=== PATIENT | male | born 1945 | race Caucasian/White ===

== ENCOUNTER 2017-08-14 05:55 | Inpatient (IN) ==
[2017-08-12 13:49] LABS: Basophils # (Auto) 0 K/mcL (0.0-0.3); Basophils % (Auto) 0.3 % (0.0-2.0); Eosinophils # (Auto) 0 K/mcL (0.0-0.7); Eosinophils % (Auto) 0.6 % (0.0-7.0); Granulocytes % (Auto) 76.7 % (38.0-78.0); Lymphocytes # (Auto) 1.1 K/mcL (1.5-4.8); Lymphocytes % (Auto) 14.5 % (15.5-49.0); Mean Cell Volume 103.1 fL (80.0-100.0); Mean Corpuscular HGB Conc 34.9 g/dL (31.0-36.0); Monocytes # (Auto) 0.6 K/mcL (0.1-0.9); Monocytes % (Auto) 7.9 % (1.0-12.0); Platelet Count 219 K/mcL (140-440); RBC 4.14 M/mcL (4.50-5.90); Red Cell Distribution Width 13.7 % (11.5-14.5)
[2017-08-14] MEDS ORDERED: 0.9 % SODIUM CHLORIDE 250 ML IV SCH (06:00)
[2017-08-14] MEDS ORDERED: cefOXitin 1 GM in DEXTROSE 5% IN WATER 50 ML IV SCH (06:30)
[2017-08-14 07:10] LABS: ALT/SGPT 29 U/l (0-40); Alkaline Phosphatase 69 U/L (39-117); Blood Urea Nitrogen 7 mg/dl (8-23)
[2017-08-14] MEDS ORDERED: NEOSTIGMINE 1 MG/ML VIAL IV ONE (08:30)
[2017-08-14] MEDS ORDERED: PROPOFOL 200 MG/20 ML VIAL IV ONE (08:30)
[2017-08-14] MEDS ORDERED: GLYCOPYRROLATE 0.2 MG/ML VIAL IV ONE (08:30)
[2017-08-14] MEDS ORDERED: KETAMINE 100 MG/ML ML IV ONE (08:30)
[2017-08-14] MEDS ORDERED: ALBUMIN HUMAN 25 GM/100 ML BAG IV ONE ×3 (08:30→10:04)
[2017-08-14] MEDS ORDERED: MIDAZOLAM 2 MG/2 ML VIAL IV ONE (08:30)
[2017-08-14] MEDS ORDERED: LIDOCAINE HCL/PF 100 MG/5 ML SYRINGE IV ONE (08:30)
[2017-08-14] MEDS ORDERED: TRANEXAMIC ACID 1,000 MG/10 ML VIAL IV ONE (08:30)
[2017-08-14] MEDS ORDERED: HETASTARCH 6% 500 ML BAG IV ONE (08:30)
[2017-08-14] MEDS ORDERED: PHENYLEPHRINE 10 MG/ML VIAL IV ONE (08:30)
[2017-08-14] MEDS ORDERED: ROCURONIUM 10 MG/ML ML IV ONE (08:30)
[2017-08-14] MEDS ORDERED: ONDANSETRON 4 MG/2 ML VIAL IV ONE (08:30)
[2017-08-14] MEDS ORDERED: BENZOCAINE/MENTHOL 1 LOZENGE PO PRN (10:05)
[2017-08-14] MEDS ORDERED: MEPERIDINE 25 MG/ML SYRINGE IV PRN (10:05)
[2017-08-14] MEDS ORDERED: ePHEDrine 50 MG/ML AMPUL IV PRN (10:05)
[2017-08-14] MEDS ORDERED: fentaNYL 100 MCG/2 ML VIAL IV PRN (10:05)
[2017-08-14] MEDS ORDERED: ONDANSETRON 4 MG/2 ML VIAL IV PRN ×2 (10:05→10:26)
[2017-08-14] MEDS ORDERED: METHOCARBAMOL 1,000 MG/10 ML VIAL IV PRN (10:05)
[2017-08-14] MEDS ORDERED: IPRATROPIUM/ALBUTEROL 3 ML AMPUL.NEB NEB PRN (10:05)
[2017-08-14] MEDS ORDERED: LACTATED RINGERS 1,000 ML IV SCH (10:15)
[2017-08-14] MEDS ORDERED: KETOROLAC 15 MG/ML VIAL IV PRN (10:26)
[2017-08-14] MEDS ORDERED: oxyCODONE/APAP 5/325MG TABLET PO PRN (10:26)
--- NOTE | 2017-08-14 10:35 | Brief Operative Note ---
Date of procedure: 08/14/17 Pre-op diagnosis: prostate cancer, lih Post-op diagnosis: same Procedure: rrp, lih repair Grafts/Implants: No Anesthesia: GETA Findings: see note Complications: none Surgeon: Nima Webb Medical Pathology Teacher: Ronnie Gutierrez Estimated blood loss (cc): 650 Specimens Removed/Pathology: (lymph nodes, prostate) Condition: stable Disposition: PACU
[2017-08-14 11:01] LABS: Mean Cell Volume 102.9 fL (80.0-100.0); Mean Corpuscular HGB Conc 34.9 g/dL (31.0-36.0); Mean Corpuscular Hemoglobin 35.9 pg (26.0-34.0); Platelet Count 212 K/mcL (140-440); RBC 3.97 M/mcL (4.50-5.90)
--- NOTE | 2017-08-14 11:08 | Operative Note ---
DATE OF OPERATION: 08/14/2017 PREOPERATIVE DIAGNOSES: Prostate cancer, left inguinal hernia. POSTOPERATIVE DIAGNOSES: Prostate cancer, left inguinal hernia. PROCEDURE: Left inguinal herniorrhaphy and radical retropubic prostatectomy. SURGEON: Nima Webb M.D. DELIVERY AGENT: Ronnie Gutierrez M.D. INDICATION: The patient is a 71-year-old gentleman who has biopsy-proven adenocarcinoma. He also has a left inguinal hernia and presents now for repair. PROCEDURE: The patient was identified and consent was signed. He was given general anesthesia and also spinal anesthesia, placed in supine position, and prepped and draped in a standard fashion. A Noel catheter was placed, and this drained clear urine. A midline incision was made with a 15 blade scalpel, and this was carried down to the fascia with electrocautery. The fascia was then opened, and we were able to identify the perivesical space. At this point, with the Blaire retractor in we were able to isolate the obturator area. We were then able to remove the nodes. Our limit of dissection was from the posterior wall medially to the bladder, laterally to the body wall, anteriorly to the bifurcation of the iliac vessels, and inferiorly to the endopelvic fascia. This was reported on both sides. Obturator nerve was not damaged. It was visualized in both instances, and the lymph nodes were sent. These appeared to be benign. At this time we turned our attention to the left inguinal hernia. Using a preperitoneal approach, we were able to isolate the sac and carefully dissect this free. This was a small hernia. We were then able to close the weakness in the floor of the inguinal canal using 2-0 Prolene, and I was pleased with the overall appearance. [id number] stitches were placed. We then turned our attention to the prostate. We removed the fat from the perivesical space and then were able to identify the puboprostatic ligaments and also the dorsal venous complex. A backbleeding stitch was placed of 0 Vicryl and then two stitches were placed along the dorsal venous complex. This was incised down to the area of the Noel catheter. I was pleased with the overall appearance. There was some bleeding which was controlled with a chromic stitch. We were then able to transect the urethra at the urethral prostatic junction and placed four stitches at the 3 o'clock, 11 o'clock, 1 o'clock and 9 o'clock positions. I was pleased with the anastomosis. We then were able to bring the Noel catheter up to the field. We were able to cut the anterior urethra with the scissors and then develop the plane between the Denonvilliers fascia and the rectum. The lateral pedicles were taken down between right angles and ties, and we were able to isolate the prostate at this point. We were then able to open up Denonvilliers fascia, see the ampulla of vas deferens. These were clipped, and the tip of the seminal vesicles were also clipped. This freed up the prostate. We then turned our attention to the anterior bladder wall. This was incised with scissors and then posteriorly with electrocautery. At no time did we damage the orifices. Bladder appeared to be normal. The prostate was then sent off for pathology. We then did a bladder neck closure using a racket-handle fashion with 2-0 Vicryl and Lembert stitches were then placed. We then placed the other two urethral strictures at the 5 and 7 o'clock positions. With the bladder neck reapproximated, we were then able to bring the bladder down by the urethra. Stitches were placed in the corresponding area on the bladder, making sure we had a pefgkh-iw-[id number] approximation. We then placed a Noel catheter. This passed easily and we tied down the stitches. All six stitches were tied, and we had a good anastomosis. There was no leakage. We inspected for bleeding, there was none. A CALLY drain was placed, and the fascia was closed with a #1 PDS. The wound was irrigated. Liv were used to close the skin. Sterile dressings were applied, and he was awoken and taken to recovery room in stable condition. He tolerated the procedure well. Estimated blood loss was 650 mL. Needle and sponge count were correct. SARAH:hao Job ID: [id number] Doc ID: [id number] Nima Webb MD
[2017-08-14 11:39] LABS: Mean Corpuscular HGB Conc 35.1 g/dL (31.0-36.0); Mean Corpuscular Hemoglobin 35.8 pg (26.0-34.0); Platelet Count 150 K/mcL (140-440); RBC 2.62 M/mcL (4.50-5.90); Red Cell Distribution Width 13.3 % (11.5-14.5)
[2017-08-14] MEDS: DEXTROSE 5%-1/2NS W/20MEQ KCL 1,000 ML IV SCH ×2 (11:52→20:27)
[2017-08-14 12:55] LABS: Blood Urea Nitrogen 6 mg/dl (8-23)
[2017-08-14] MEDS: cefOXitin 1 GM in DEXTROSE 5% IN WATER 50 ML IV SCH (16:30)
[2017-08-14] MEDS: 0.9 % SODIUM CHLORIDE 10 ML SYRINGE IV SCH ×2 (16:31→21:55)
[2017-08-14] MEDS: NIACIN 250 MG CAP.SR.12H PO SCH ×2 (18:20→20:27)
[2017-08-15] MEDS: cefOXitin 1 GM in DEXTROSE 5% IN WATER 50 ML IV SCH ×4 (00:06→16:14)
[2017-08-15] MEDS: DEXTROSE 5%-1/2NS W/20MEQ KCL 1,000 ML IV SCH (04:44)
[2017-08-15] MEDS: 0.9 % SODIUM CHLORIDE 10 ML SYRINGE IV SCH ×3 (05:44→21:39)
--- NOTE | 2017-08-15 07:26 | General Surgery Progress Note ---
Subjective Patient reports: tolerating liquids well, no flatus Narrative: Note initiated : 08/15/17 at 7:23 am Service Date, if different from initiated Date: [] Patient: Nima Maxwell 71 y/o M admitted on 08/14/17 for Radical Retropubic Prostatectomy, Right Inguinal . Chief Complaint: [] pod #1 RRP patient w/o complaints af/vss jh=[id number] urine clearing. wound dressing dry Hct = 26 will await todays plan advance diet, ambulate, transfer to floor Objective Temp Pulse Resp BP Pulse Ox 99.1 F H 86 14 127/69 95 08/15/17 04:00 08/15/17 04:00 08/15/17 04:00 08/15/17 04:00 08/15/17 04:00 - Additional Data Intake & Output - Last 24 hours: Intake & Output 08/13/17 08/14/17 08/15/17 08/16/17 05:59 05:59 05:59 05:59 Intake Total 6410 / 6410 Output Total 1773 / 1773 130 / 130 Balance 4637 / 4637 -130 / -130 Weight 165 lb 148 lb 148 lb - Labs 08/14/17 11:00 08/14/17 11:00 Diabetes panel 08/14/17 Range/Units 11:00 Sodium 134 (133-145) mmol/L Potassium 3.9 (3.3-5.1) mmol/L Chloride 101 (96-108) mmol/L Carbon Dioxide 25 (22-30) mmol/L BUN 6 L (8-23) mg/dl Creatinine 0.8 (0.7-1.2) mg/dl Glucose 148 H (70-105) mg/dL Calcium 7.7 L (8.6-10.4) mg/dl Calcium panel 08/14/17 Range/Units 11:00 Calcium 7.7 L (8.6-10.4) mg/dl Pituitary panel 08/14/17 Range/Units 11:00 Sodium 134 (133-145) mmol/L Potassium 3.9 (3.3-5.1) mmol/L Chloride 101 (96-108) mmol/L Carbon Dioxide 25 (22-30) mmol/L BUN 6 L (8-23) mg/dl Creatinine 0.8 (0.7-1.2) mg/dl Glucose 148 H (70-105) mg/dL Calcium 7.7 L (8.6-10.4) mg/dl Adrenal panel 08/14/17 Range/Units 11:00 Sodium 134 (133-145) mmol/L Potassium 3.9 (3.3-5.1) mmol/L Chloride 101 (96-108) mmol/L Carbon Dioxide 25 (22-30) mmol/L BUN 6 L (8-23) mg/dl Creatinine 0.8 (0.7-1.2) mg/dl Glucose 148 H (70-105) mg/dL Calcium 7.7 L (8.6-10.4) mg/dl Assessment and Plan - Time Spent With Patient Total time spent is greater than 50% in coordination of care (as documented) at patient's floor/unit and/or counseling patient:
[2017-08-15] MEDS ORDERED: DEXTROSE 5%-1/2NS W/20MEQ KCL 1,000 ML IV SCH (08:07)
[2017-08-15] MEDS ORDERED: KETOROLAC 15 MG/ML VIAL IV SCH (08:07)
[2017-08-15] MEDS ORDERED: oxyCODONE/APAP 5/325MG TABLET PO PRN (08:07)
[2017-08-15] MEDS ORDERED: ONDANSETRON 4 MG/2 ML VIAL IV PRN (08:07)
[2017-08-15] MEDS: VIT A,C & E/LUTEIN/MINERALS TABLET PO SCH (08:36)
[2017-08-15] MEDS: ALLOPURINOL 100 MG TABLET PO SCH (08:36)
[2017-08-15] MEDS: MULTIVIT,THER IRON,CA,FA & MIN 1 TABLET PO SCH (08:36)
[2017-08-15] MEDS: NIACIN 250 MG CAP.SR.12H PO SCH ×5 (08:36→21:40)
[2017-08-15] MEDS: HYDROCHLOROTHIAZIDE 12.5 MG CAPSULE PO SCH (08:36)
[2017-08-15] MEDS: LOSARTAN 50 MG TABLET PO SCH (08:36)
[2017-08-15] MEDS: ASPIRIN 81 MG TAB.CHEW PO SCH (08:37)
[2017-08-15] MEDS: PROBENECID 500 MG TABLET PO SCH (08:39)
[2017-08-15] MEDS: VITAMIN B COMPLEX 1 CAPSULE PO SCH (08:43)
[2017-08-15] MEDS ORDERED: VIT A,C & E/LUTEIN/MINERALS TABLET PO SCH (09:00)
[2017-08-15] MEDS ORDERED: ALLOPURINOL 100 MG TABLET PO SCH (09:00)
[2017-08-15] MEDS ORDERED: ASPIRIN 81 MG TAB.CHEW PO SCH (09:00)
[2017-08-15] MEDS ORDERED: MULTIVIT,THER IRON,CA,FA & MIN 1 TABLET PO SCH (09:00)
[2017-08-15] MEDS ORDERED: VITAMIN B COMPLEX 1 CAPSULE PO SCH (09:00)
[2017-08-15] MEDS ORDERED: LOSARTAN 50 MG TABLET PO SCH (09:00)
[2017-08-15] MEDS ORDERED: PROBENECID 500 MG TABLET PO SCH (09:00)
[2017-08-15] MEDS ORDERED: HYDROCHLOROTHIAZIDE 12.5 MG CAPSULE PO SCH (09:00)
[2017-08-15 10:00] LABS: Basophils # (Auto) 0 K/mcL (0.0-0.3); Basophils % (Auto) 0.1 % (0.0-2.0); Eosinophils # (Auto) 0.1 K/mcL (0.0-0.7); Eosinophils % (Auto) 0.6 % (0.0-7.0); Granulocytes % (Auto) 84.3 % (38.0-78.0); Lymphocytes # (Auto) 0.9 K/mcL (1.5-4.8); Lymphocytes % (Auto) 9.7 % (15.5-49.0); Mean Corpuscular HGB Conc 34.7 g/dL (31.0-36.0); Mean Corpuscular Hemoglobin 36.1 pg (26.0-34.0); Monocytes # (Auto) 0.5 K/mcL (0.1-0.9); Monocytes % (Auto) 5.3 % (1.0-12.0); Platelet Count 151 K/mcL (140-440); Red Cell Distribution Width 13.2 % (11.5-14.5)
[2017-08-15 10:19] LABS: ALT/SGPT 20 U/l (0-40); Albumin 3.3 gm/dL (3.2-5.2); Albumin/Globulin Ratio 2.4 (1.0-2.3); Alkaline Phosphatase 39 U/L (39-117); Blood Urea Nitrogen 7 mg/dl (8-23)
[2017-08-15] MEDS: DEXTROSE 5%-NS W/20MEQ KCL 1,000 ML IV SCH ×2 (13:22)
[2017-08-15] MEDS: NACL 0.9% W/KCL 20MEQ 1,000 ML IV SCH (17:12)
[2017-08-16] MEDS: cefOXitin 1 GM in DEXTROSE 5% IN WATER 50 ML IV SCH ×2 (00:13→08:35)
[2017-08-16] MEDS: NACL 0.9% W/KCL 20MEQ 1,000 ML IV SCH (06:06)
[2017-08-16] MEDS: 0.9 % SODIUM CHLORIDE 10 ML SYRINGE IV SCH (06:06)
[2017-08-16 06:46] LABS: Basophils # (Auto) 0 K/mcL (0.0-0.3); Basophils % (Auto) 0.3 % (0.0-2.0); Eosinophils # (Auto) 0.2 K/mcL (0.0-0.7); Eosinophils % (Auto) 1.9 % (0.0-7.0); Granulocytes % (Auto) 74.2 % (38.0-78.0); Lymphocytes # (Auto) 1.5 K/mcL (1.5-4.8); Lymphocytes % (Auto) 15.5 % (15.5-49.0); Mean Cell Volume 103.4 fL (80.0-100.0); Mean Corpuscular HGB Conc 35.4 g/dL (31.0-36.0); Mean Corpuscular Hemoglobin 36.6 pg (26.0-34.0); Monocytes # (Auto) 0.8 K/mcL (0.1-0.9); Monocytes % (Auto) 8.1 % (1.0-12.0); Platelet Count 144 K/mcL (140-440); RBC 2.54 M/mcL (4.50-5.90)
[2017-08-16] MEDS: ASPIRIN 81 MG TAB.CHEW PO SCH (08:34)
[2017-08-16] MEDS: VIT A,C & E/LUTEIN/MINERALS TABLET PO SCH (08:34)
[2017-08-16] MEDS: LOSARTAN 50 MG TABLET PO SCH (08:34)
[2017-08-16] MEDS: ALLOPURINOL 100 MG TABLET PO SCH (08:34)
[2017-08-16] MEDS: MULTIVIT,THER IRON,CA,FA & MIN 1 TABLET PO SCH (08:34)
[2017-08-16] MEDS: HYDROCHLOROTHIAZIDE 12.5 MG CAPSULE PO SCH (08:34)
[2017-08-16] MEDS: PROBENECID 500 MG TABLET PO SCH (08:35)
[2017-08-16] MEDS: VITAMIN B COMPLEX 1 CAPSULE PO SCH (08:35)
--- NOTE | 2017-08-16 10:19 | Discharge Plan ---
Discharge Plan - Patient/Caregiver Discharge Instructions Activity: increase activity as tolerated Diet: Regular Diet Additional Instructions: f/u friday for staple removal Prescriptions: oxyCODONE/APAP [Percocet 5-325 mg] 10 mg PO Q4HP PRN #30 tab PRN Reason: Pain - Follow up Plan Disposition: Home, Self-Care Prognosis: Good Rehab Potential: Good Overall status at discharge: patient is back to baseline
--- NOTE | 2017-08-16 10:32 | General Surgery Progress Note ---
Surgical - Auxillary Note - Subjective Patient Information: Note initiated : 08/16/17 at 10:30 am Service Date, if different from initiated Date: [] Patient: Nima Maxwell 71 y/o M admitted on 08/14/17 for Radical Retropubic Prostatectomy, Right Inguinal . Chief Complaint: [] POD #2 af/vss hct stable owen removed will d/c to home d/c summary dictated.
[2017-08-16] MEDS: NIACIN 250 MG CAP.SR.12H PO SCH (12:40)
--- NOTE | 2017-08-18 10:28 | Discharge Summary ---
DATE OF ADMISSION: 08/14/2017 DATE OF DISCHARGE: 08/16/2017 ADMITTING DIAGNOSIS: Prostate cancer. POSTOPERATIVE DIAGNOSIS: Prostate cancer. PROCEDURE: Radical retropubic prostatectomy and right inguinal hernia repair. SURGEON: Nima Webb MD INDICATION: Patient is a 71-year-old gentleman who had a PSA of 6.86. Biopsy did show adenocarcinoma, Thorp's grade 5 + 4 mostly on the left side but also on the right. Bone scan and CT scan were negative. He presents now for radical retropubic prostatectomy and left inguinal hernia repair. For the rest of the History and Physical, please see dictated. HOSPITAL COURSE: Patient was taken to the operating room where a radical retropubic prostatectomy was performed. Immediately postoperatively his hematocrit went down to 24 and then stabilized at 26. His wound was clean and dry. He was advanced rapidly through his diet and his CALLY drain was removed. At this time he is ready for discharge to home. Final pathology is pending. He will be sent home on Percocet for pain, also his preoperative medications and Cipro that he can start 2 days prior to the catheter removal. I have answered his and his 's questions. He tolerated the procedure well. SARAH:cynthia Job ID: [id number] Doc ID: [id number] Nima Webb MD
--- NOTE | 2017-08-19 13:03 | Surgical Pathology Report ---
HISTOLOGY SPECIMEN MICROSCOPIC DIAGNOSIS SPECIMEN A - LYMPH NODE, LEFT OBTURATOR, EXCISION: -- FIVE LYMPH NODES NEGATIVE FOR METASTATIC CARCINOMA (0/5). SPECIMEN B - LYMPH NODE, RIGHT OBTURATOR, EXCISION: -- THREE LYMPH NODES NEGATIVE FOR METASTATIC CARCINOMA (0/3). SPECIMEN C - PROSTATE, PROSTATECTOMY: -- PROSTATIC ADENOCARCINOMA, WITH THE FOLLOWING FEATURES: - HISTOLOGIC GRADE: JOURDAN SCORE 7 (4+3), GRADE GROUP 3. - TERTIARY PATTERN: PATTERN 5. -- TUMOR QUANTITATION: 20-30% OF PROSTATE IS INVOLVED BY TUMOR. -- EXTRAPROSTATIC EXTENSION: NOT IDENTIFIED. -- URINARY BLADDER NECK INVASION: NOT IDENTIFIED. -- SEMINAL VESICLE INVASION: PRESENT. -- MARGINS: INVOLVED BY INVASIVE CARCINOMA, LIMITED (LESS THAN 3 mm). - LOCATION OF POSITIVE MARGIN: LEFT AND RIGHT APICAL. -- LYMPHOVASCULAR INVASION: NOT IDENTIFIED. -- PERINEURAL INVASION: PRESENT. -- PATHOLOGIC STAGE: pT3b N0. SUMMARY OF CANCER DATA: Procedure: Radical prostatectomy. Prostate Size: 23 grams. Histologic Type: Adenocarcinoma. Histologic Grade: Primary Pattern: Pattern 4. Secondary Pattern: Pattern 3. Tertiary Pattern: Pattern 5. Total Jourdan Score: 7, grade group 3. Percentage of [place] Patterns 4 and 5: Percentage of Pattern 4: 60%. Percentage of Pattern 5: 10%. Tumor Quantitation: Percentage of Prostate Involved by Tumor: 20-30%. Extraprostatic Extension: Not identified. Urinary Bladder Neck Invasion: Not identified. Seminal Vesicle Invasion: Present (slide C23). Margins: Involved by invasive carcinoma, limited (less than 3 mm). Location of Positive Margins: Right and left apical. Lymphovascular Invasion: Not identified. Perineural Invasion: Present. Regional Lymph Nodes: Number of Lymph Nodes Involved: 0. Number of Lymph Nodes Examined: 8. Pathologic Stage: pT3b N0. CLINICAL HISTORY Prostate cancer, [id number]. GROSS DESCRIPTION Specimen A: Received in formalin labeled left obturator node, are fragments of yellow-river adipose tissue which in aggregate measure 3.0 x 2.0 x 0.8 cm. Several small possible lymph nodes are identified within this material. These are totally submitted in one cassette. Specimen B: Received in formalin labeled right obturator node, are fragments of yellow-river adipose tissue which in aggregate measure 3.0 x 5.0 x 1.0 cm. A few possible lymph nodes are identified within this material. These possible nodes are totally submitted in one cassette. Specimen C: Received in formalin labeled prostate, is a prostatectomy specimen with seminal vesicles and vas deferens. After removal of the seminal vesicle complex, the prostate weighs 23 grams and measures 3.6 cm in the right to left axis, 3.2 cm in the anterior to posterior axis and 3.7 cm in the base to apex axis. The entire specimen is inked black. The left side is over-inked blue, the right side is over-inked green, the anterior is over-inked orange. The specimen is serially sectioned in approximately 0.3 cm segments into 11 slices not counting the seminal vesicle complex. The entire specimen is submitted. The seminal vesicle complex overall measures 0.8 x 1.0 x 4.2 cm. Cut surfaces of the prostate show mottled river to leav[place]-river cut surfaces with areas suggestive of malignancy; suggested in several pieces without a discrete mass or clearly nodular areas. Sections submitted: C1 - slice 1 apex left; C2 - slice 1 apex right; C3 - slice 2 left; C4 - slice 2 right; C5 - slice 3 left; C6 - slice 3 right; C7 - slice 4 left; C8 - slice 4 right; C9 - slice 5 left; C10 - slice 5 right; C11 - slice 6 left; C12 - slice 6 right; C13 - slice 7 left; C14 - slice 7 right; C15 - slice 8 left; C16 - slice 8 right; C17 - slice 9 left; C18 - slice 9 right; C19 - slice 10 left; C20 - slice 10 right; C21 - slice 11 - left; C22 - slice 11 right; C23 - seminal vesicle/vas at junction with prostate; C24 - remainder of seminal vesicle and vas deferens. (RAD:djf) Electronically Signed by: Madison Abad M.D.
== END 2017-08-16 12:15 | disposition home or self-care (01) | DRG 708 ==
LOC: MEDSUR 05:55 → ICU 11:23 → MEDSUR 08-15 13:17

== ENCOUNTER 2018-10-19 08:05 | Inpatient (IN) ==
[~2018-10-19 08:05] MED LIST: 0.9 % SODIUM CHLORIDE 9 ML, KETOROLAC 30 MG, ROPIVACAINE HCL/PF 49.5 ML, EPINEPHrine 0.... IJ SCH; ACETAMINOPHEN 500 MG TABLET PO SCH; CELECOXIB 200 MG CAPSULE PO SCH; PREGABALIN 75 MG CAPSULE PO SCH; ceFAZolin 1 GM VIAL IV SCH; oxyCODONE 10 MG TAB.ER.12H PO SCH
[2018-10-19 08:51] LABS: Basophils # (Auto) 0 K/mcL (0.0-0.3); Basophils % (Auto) 0.6 % (0.0-2.0); Eosinophils # (Auto) 0.1 K/mcL (0.0-0.7); Granulocytes % (Auto) 60.8 % (38.0-78.0); Lymphocytes # (Auto) 1.3 K/mcL (1.5-4.8); Lymphocytes % (Auto) 25.1 % (15.5-49.0); Mean Cell Volume 100.3 fL (80.0-100.0); Mean Corpuscular HGB Conc 34.3 g/dL (31.0-36.0); Mean Corpuscular Hemoglobin 34.4 pg (26.0-34.0); Monocytes # (Auto) 0.6 K/mcL (0.1-0.9); Monocytes % (Auto) 11.5 % (1.0-12.0); Platelet Count 414 K/mcL (140-440); RBC 4.01 M/mcL (4.50-5.90); Red Cell Distribution Width 13.3 % (11.5-14.5)
[2018-10-19 09:10] LABS: Blood Urea Nitrogen 8 mg/dl (8-23)
[2018-10-19] MEDS ORDERED: PROPOFOL 200 MG/20 ML VIAL IV ONE (12:25)
[2018-10-19] MEDS ORDERED: TRANEXAMIC ACID 1,000 MG/10 ML VIAL IV ONE ×2 (12:25→13:36)
[2018-10-19] MEDS ORDERED: MIDAZOLAM 5 MG/5 ML VIAL IV ONE (12:25)
[2018-10-19] MEDS ORDERED: ePHEDrine 50 MG/ML AMPUL IV ONE (12:25)
[2018-10-19] MEDS ORDERED: ONDANSETRON 4 MG/2 ML VIAL IV ONE (12:25)
[2018-10-19] MEDS ORDERED: DEXAMETHASONE 10 MG/ML VIAL IV ONE (12:25)
[2018-10-19] MEDS ORDERED: LIDOCAINE HCL/PF 100 MG/5 ML SYRINGE IV ONE (12:25)
[2018-10-19 12:43] LABS: Appearance,Urine CLOUDY; Bacteria,Urine 0 /hpf (0); Bilirubin,Urine NEG (NEG); Color,Urine YELLOW; Glucose,Urine (UA) NEGATIVE (NEG); Leukocyte Esterase,Urine NEG /uL (NEG); Mucus,Urine FEW /hpf (0); Protein,Urine 100 mg/dL (NEG); Specific Gravity,Urine 1.012 (1.000-1.035); Urine Amorphous Crystals FEW /hpf (0); Urine Blood NEG mg/dL (<0.03); Urine Hyaline Cast 3 /lpf (0-2); Urine RBC 1 /hpf (0-1); Urine Squamous Epithelial Cell < 1 /hpf (0-4); Urine WBC 2 /hpf (0-4); Urobilinogen,Urine NEG (NEG)
[2018-10-19] MEDS ORDERED: diphenhydrAMINE 50 MG/ML VIAL IV PRN (13:02)
[2018-10-19] MEDS ORDERED: BENZOCAINE/MENTHOL 1 LOZENGE PO PRN ×2 (13:02→13:36)
[2018-10-19] MEDS ORDERED: ONDANSETRON 4 MG/2 ML VIAL IV PRN ×2 (13:02→13:36)
[2018-10-19] MEDS ORDERED: fentaNYL 100 MCG/2 ML VIAL IV PRN (13:02)
[2018-10-19] MEDS ORDERED: FLUMAZENIL 0.1 MG/ML ML IV PRN (13:02)
[2018-10-19] MEDS ORDERED: IPRATROPIUM/ALBUTEROL 3 ML AMPUL.NEB NEB PRN (13:02)
[2018-10-19] MEDS ORDERED: NALOXONE HCL 0.4 MG/ML VIAL IV PRN (13:02)
[2018-10-19] MEDS ORDERED: MEPERIDINE 25 MG/ML SYRINGE IV PRN (13:02)
[2018-10-19] MEDS ORDERED: PROMETHAZINE 25 MG/ML VIAL IV PRN (13:02)
[2018-10-19] MEDS ORDERED: LACTATED RINGERS 250 ML IV PRN (13:02)
[2018-10-19] MEDS ORDERED: LACTATED RINGERS 1,000 ML IV SCH (13:15)
[2018-10-19] MEDS ORDERED: HYDROmorphone 2 MG/ML VIAL IV PRN (13:36)
[2018-10-19] MEDS ORDERED: POLYETHYLENE GLYCOL 3350 17 GM PACKET PO PRN (13:36)
[2018-10-19] MEDS ORDERED: ACETAMINOPHEN 325 MG TABLET PO PRN (13:36)
[2018-10-19] MEDS ORDERED: TEMAZEPAM 15 MG CAPSULE PO PRN (13:36)
[2018-10-19] MEDS ORDERED: KETOROLAC 15 MG/ML VIAL IV PRN (13:36)
[2018-10-19] MEDS ORDERED: MAGNESIUM HYDROXIDE 30 ML ORAL.SUSP PO PRN (13:36)
[2018-10-19] MEDS ORDERED: FLEETS ADULT ENEMA PR PRN (13:36)
[2018-10-19] MEDS ORDERED: BISACODYL 10 MG SUPP.RECT PR PRN (13:36)
--- NOTE | 2018-10-19 13:36 | Brief Operative Note ---
Date of procedure: 10/19/18 Pre-op diagnosis: Right hip djd severe Post-op diagnosis: same Procedure: right cemented lina Grafts/Implants: Yes Anesthesia: GETA Complications: none Surgeon: Emery Limon Digester Cook: Jh Brady Estimated blood loss (cc): 100 Specimens Removed/Pathology: none sent Condition: stable Disposition: PACU
[2018-10-19] MEDS ORDERED: oxyCODONE/APAP 10/325MG TABLET PO PRN (13:39)
[2018-10-19] MEDS: 0.9 % SODIUM CHLORIDE 10 ML SYRINGE IV SCH ×2 (14:07→20:33)
--- NOTE | 2018-10-19 14:39 | Operative Note ---
DATE OF OPERATION: 10/19/2018 PREOPERATIVE DIAGNOSIS: Right hip degenerative arthritis, severe. POSTOPERATIVE DIAGNOSIS: Right hip degenerative arthritis, severe. PROCEDURE: Right total hip arthroplasty, cemented. SURGEON: Emery Limon MD MEMORIAL COUNSELOR: Jh Brady PA-C ANESTHESIA: Spinal with General LMA anesthesia. COMPLICATIONS: None. ESTIMATED BLOOD LOSS: About 100 mL DESCRIPTION OF PROCEDURE: The patient was brought to the operating room and put to sleep with general LMA anesthesia. Once asleep, the patient had a timeout performed confirming the operative site as the right hip. We confirmed this by x-ray, consent form and initials. Once this was confirmed, we then proceeded with the case. Ioban had been placed over the skin. We made a superior approach to the hip and placed the retractors, dislocated the hip and made a femoral neck cut at 30 mm from the center of hip rotation. We then subluxed the hip anteriorly and reamed up to the size 54. A 54 cup was then placed with a 35 mm screw. A hooded liner inferiorly was placed for stability. We irrigated thoroughly. Excellent fixation and bony bleeding was encountered and I was very pleased with the cup position. We then prepared the femur. This was broached up to a size 6 with a neutral neck length and this was reduced. Then we did an x-ray. This showed the leg to be slightly shorter than the opposite leg, about 2-3 mm shorter. At this point, we then went to a 5 mm. We cemented into place the size 6 stem cemented. Once the cement was hardened, we then placed a +5 mm ceramic head. The head was 36 mm in diameter. This reduced. This was stable up to 90 degrees, extremely stable. We irrigated thoroughly and closed the capsule with #1 Ethibond, closed the fascial layer to the gluteus medius and una with #1 Stratafix. Skin was closed with Stratafix and adhesive closure. The patient tolerated this well. There was no complication. Sterile bandage applied. Leg lengths were equal and hip very stable. RBH:cynthia Job ID: [id number] Doc ID: [id number] Emery Limon MD
--- NOTE | 2018-10-19 14:45 | XRay Report ---
CLINICAL INFORMATION: Postsurgical follow-up TECHNIQUE: AP and crosstable lateral right hip. AP pelvis COMPARISON: None. FINDINGS: Status post right total hip arthroplasty. Acetabular and femoral head components are in anatomic positions. There is postsurgical intra-articular and soft tissue gas. There are multiple surgical clips in the pelvis IMPRESSION: Status post right total hip arthroplasty Interpreted and Authenticated by: Kian Berger 10/19/18
[2018-10-19] MEDS: 0.45 % SODIUM CHLORIDE 1,000 ML IV SCH (15:11)
[2018-10-19] MEDS: oxyCODONE/APAP 10/325MG TABLET PO PRN (17:14)
[2018-10-19] MEDS: NIACIN 500 MG PO SCH (18:10)
--- NOTE | 2018-10-19 18:28 | Discharge Summary ---
Ortho Discharge - [facility] - Patient Instructions Diet: Regular Diet Activity: activity as tolerated, weight bearing as tolerated Total Hip Protocol: Follow activity instructions as provided by Physical Therapy. Dressing Care: May shower in 2 days - Follow Up Plan Follow Up Appointments: Jh Brady PA-C [Physician Phlebotomy Services Representative] - 11/05/18 8:10 am Disposition: Home, Self-Care Prognosis: Good Rehab Potential: Good I certify that the patient requires SNF services: No Overall status at discharge: patient is progressing back to baseline - Orders For Discharge Prescriptions: Aspirin [Ecotrin] 325 mg PO BID #28 tab.ec oxyCODONE/APAP [Percocet 5-325 mg] 1 - 2 tab PO Q4H PRN #60 tab PRN Reason: Pain Additional Discharge Orders: Physical Therapy at Discharge - [facility] Location: None Selected Toilet Riser Discharge Order Location: None Selected Walker Location: None Selected
[2018-10-19] MEDS: DOCUSATE SODIUM 100 MG CAPSULE PO SCH (20:32)
[2018-10-19] MEDS: ASPIRIN 325 MG ENTERIC COATED TABLET PO SCH (20:32)
[2018-10-19] MEDS ORDERED: SENNOSIDES 1 TABLET PO SCH (21:00)
[2018-10-19] MEDS: HYDROcodone/APAP 10/325MG TABLET PO PRN (22:08)
[2018-10-19] MEDS: ceFAZolin 1 GM VIAL IV SCH (22:08)
[2018-10-20] MEDS: NIACIN 500 MG PO SCH ×2 (00:41→06:04)
[2018-10-20] MEDS: 0.9 % SODIUM CHLORIDE 10 ML SYRINGE IV SCH (05:48)
[2018-10-20] MEDS: ceFAZolin 1 GM VIAL IV SCH (05:48)
[2018-10-20] MEDS: HYDROcodone/APAP 10/325MG TABLET PO PRN (05:48)
[2018-10-20] MEDS: 0.45 % SODIUM CHLORIDE 1,000 ML IV SCH ×2 (05:50→11:16)
--- NOTE | 2018-10-20 07:37 | Orthopedic Progress Note ---
Subjective Patient information: Note initiated : 10/20/18 at 7:36 am Service Date, if different from initiated Date: [] Patient: Nima Maxwell 73 y/o M admitted on 10/19/18 for Right Total Hip Arthroplasty. Chief Complaint: [Pt is stable this morning on post operative day 1 without any significant concerns or complaints. Patients vital signs have remained stable. Patients dressing is dry and is grossly intact from a neurovascular and motor standpoint. Patients 10 point ROS is otherwise negative. ] Objective Vital signs: Vital Signs Temp Pulse Resp BP BP Pulse Ox 10/20/18 03:09 97.6 F 86 16 128/72 95 10/20/18 03:08 95 10/20/18 00:00 98.3 F 88 14 126/78 95 10/19/18 20:15 97.9 F 82 16 129/71 95 10/19/18 18:00 96 10/19/18 17:06 84 144/80 94 10/19/18 16:37 83 147/86 94 10/19/18 16:12 94 10/19/18 16:06 72 141/80 95 10/19/18 15:52 73 141/79 91 10/19/18 15:37 80 144/86 94 10/19/18 15:22 91 H 152/80 91 10/19/18 15:19 92 10/19/18 15:07 80 14 150/75 91 10/19/18 14:30 80 14 150/81 96 10/19/18 14:15 75 13 145/74 99 10/19/18 14:00 78 16 138/72 99 10/19/18 13:55 77 16 148/69 99 10/19/18 13:50 77 16 148/69 98 10/19/18 13:46 97.1 F 78 16 130/77 98 10/19/18 09:00 97.8 F 64 18 160/78 95 Intake and Output 10/19/18 10/20/18 10/20/18 21:59 05:59 13:59 Intake Total 550 / 550 1350 / 1350 Output Total 1100 / 1100 350 / 350 Balance -550 / -550 1000 / 1000 Intake: IV 1000 / 1000 Sodium Chloride 0.45% 1,000 ml 1000 / 1000 @ 100 mls/hr IV .Q10H [facility] Rx#: [id number] Oral 500 / 500 350 / 350 IV - Manual Only 50 / 50 Output: Urine Catheter Amount 1100 / 1100 Void Amount 350 / 350 Other: Urine Appearance Clear Clear Uretheral (Noel) Clear Clear Urine Color Pale Light Kami Uretheral (Noel) Bright Yellow Bright Yellow Urine Odor Normal Normal Uretheral (Noel) Normal Weight 152 lb Intake & Output: Intake & Output 10/19/18 10/20/18 10/20/18 21:59 05:59 13:59 Intake Total 550 / 550 1350 / 1350 Output Total 1100 / 1100 350 / 350 Balance -550 / -550 1000 / 1000 Weight 152 lb Intake: IV 1000 / 1000 Sodium Chloride 0.45% 1,000 ml 1000 / 1000 @ 100 mls/hr IV .Q10H [facility] Rx#: [id number] Oral 500 / 500 350 / 350 IV - Manual Only 50 / 50 Output: Urine Catheter Amount 1100 / 1100 Void Amount 350 / 350 Other: Urine Appearance Clear Clear Uretheral (Noel) Clear Clear Urine Color Pale Light Kami Uretheral (Noel) Bright Yellow Bright Yellow Urine Odor Normal Normal Uretheral (Noel) Normal Incision: Yes healing Incision clean and dry: Yes Dressing: Yes clean Weight bearing status: full Neurological exam IM: Yes motor sensory intact, Yes neurovascular intact Extremities exam IM: Yes Foot pink and warm, Yes neurovascular intact - Labs CBC & BMP: 10/20/18 05:39 10/19/18 08:15 Labs: Orthopedic Labs 10/19/18 08:15 PT 13.9 INR 1.1 APTT 36 10/20/18 10/19/18 05:39 08:15 Hgb 13.8 Hct 29.6 L 40.2 L Assessment and Plan (1) Hx of total hip arthroplasty The patient has been educated regarding dressing care, Physical Therapy recommendations, home exercises, restrictions, and follow up appointments. The patient has had all necessary DME prescribed. The patient has remained relatively stable during their hospital course. Leave Dermabond patch intact until followup Status: Acute
[2018-10-20] MEDS: DOCUSATE SODIUM 100 MG CAPSULE PO SCH (08:48)
[2018-10-20] MEDS: ASPIRIN 325 MG ENTERIC COATED TABLET PO SCH (08:48)
[2018-10-20] MEDS ORDERED: HYDROCHLOROTHIAZIDE 12.5 MG CAPSULE PO SCH (09:00)
[2018-10-20] MEDS ORDERED: LOSARTAN 50 MG TABLET PO SCH (09:00)
[2018-10-20] MEDS ORDERED: MAGNESIUM OXIDE 400 MG TABLET PO SCH (09:00)
[2018-10-20] MEDS ORDERED: MULTIVIT,THER IRON,CA,FA & MIN 1 TABLET PO SCH (09:00)
[2018-10-20] MEDS ORDERED: CALCIUM (OYSTER SHELL) 500 MG TABLET PO SCH (09:00)
[2018-10-20] MEDS ORDERED: METOPROLOL SUCCINATE 50 MG TAB.XL.24H PO SCH (09:00)
[2018-10-20] MEDS ORDERED: CYANOCOBALAMIN (VITAMIN B-12) 500 MCG TABLET PO SCH (09:00)
[2018-10-20] MEDS ORDERED: VIT A,C & E/LUTEIN/MINERALS TABLET PO SCH (09:00)
[2018-10-20] MEDS ORDERED: VITAMIN D3 1,000 UNIT TABLET PO SCH (09:00)
[2018-10-20] MEDS ORDERED: PROBENECID 500 MG PO SCH (09:00)
[2018-10-20] MEDS ORDERED: NON FORMULARY MEDICATION 1 DOSE MISCELL (Aspirin 81 MG) PO SCH (09:00)
[2018-10-20] MEDS ORDERED: ALLOPURINOL 100 MG TABLET PO SCH (09:00)
[2018-10-20] MEDS ORDERED: NON FORMULARY MEDICATION 1 DOSE MISCELL (Losartan/Hydrochlorothiazide [Hyzaar 100-12.5 Tab PO SCH (09:00)
[2018-10-20] MEDS: oxyCODONE/APAP 10/325MG TABLET PO PRN (09:35)
== END 2018-10-20 11:12 | disposition home or self-care (01) | DRG 470 ==
LOC: MEDSUR 08:05
PROVIDERS: ADMIT Orthopaedic Surgery; ATTEND Orthopaedic Surgery
CPT/HCPCS: 62322; 73501; 73502; 80047; 85014; 97161; 97166; C1713; C1776; J0690; J1100; J2001; J2250; J2405; J7120

== ENCOUNTER 2024-09-22 20:43 | Inpatient (IN) ==
[2024-09-22] MEDS: ACETAMINOPHEN 1,000 MG/100 ML BAG IV ONE (21:06)
[2024-09-22] MEDS: 0.9 % SODIUM CHLORIDE 1,000 ML IV ONE (21:06)
[2024-09-22 21:14] LABS: Basophils # (Auto) 0.01 K/mcL (0.00-0.30); Basophils % (Auto) 0.1 % (0.0-2.0); Eosinophils # (Auto) 0.03 K/mcL (0.00-0.70); Eosinophils % (Auto) 0.2 % (0.0-7.0); Hematocrit 40.5 % (40.1-51.0); Hemoglobin 14.1 g/dL (13.7-17.5); Lymphocytes # (Auto) 1.09 K/mcL (1.50-4.80); Lymphocytes % (Auto) 7.9 % (15.5-49.0); Mean Cell Volume 96.2 fL (80.0-100.0); Mean Corpuscular HGB Conc 34.8 g/dL (31.0-36.0); Mean Platelet Volume 9.8 fL (8.8-12.5); Monocytes # (Auto) 1.05 K/mcL (0.10-0.90); Monocytes % (Auto) 7.6 % (1.0-12.0); Platelet Count 241 K/mcL (140-440); RBC 4.21 M/mcL (4.63-6.08); Red Cell Distribution Width 13.3 % (11.5-14.5); WBC 13.8 K/mcL (4.5-11.0)
[2024-09-22 21:35] LABS: ALT/SGPT 13 U/L (<40); AST/SGOT 19 U/L (<40); Albumin 3.7 gm/dL (3.2-5.2); Albumin/Globulin Ratio 1.6 (1.0-2.3); Alkaline Phosphatase 89 U/L (39-117); Bilirubin,Total 0.2 mg/dL (0.1-1.0); Blood Urea Nitrogen 17 mg/dL (8-23); Calcium 9.2 mg/dL (8.6-10.4); Carbon Dioxide 25 mmol/L (22-30); Chloride 97 mmol/L (96-108); Globulin 2.3 gm/dL (2.2-3.7); Glomerular Filtration Rate 80; Glucose 130 mg/dL (70-105); Potassium 3.8 mmol/L (3.3-5.1); Sodium 134 mmol/L (133-145)
[2024-09-22] MEDS: cefTRIAXone 2 GM in DEXTROSE 5% IN WATER 50 ML IV ONE (23:00)
[2024-09-22] MEDS: VANCOMYCIN 1,000 MG in 0.9 % SODIUM CHLORIDE 250 ML IV ONE (23:39)
[2024-09-22] MEDS: IPRATROPIUM/ALBUTEROL 3 ML AMPUL.NEB NEB PRN (23:48)
[2024-09-23 00:30] LABS: Band Neutrophils % 7 % (0-10); Eosinophils % (Manual) 1 % (0-7); Lymphocytes % 8 % (15-49); Monocytes % (Manual) 5 % (1-12); Platelet Estimate NORMAL (Normal); RBC Fragments RARE (None Seen); RBC Morphology ABNORMAL (Normal); Segmented Neutrophils % 79 % (38-78)
[2024-09-23] MEDS ORDERED: LABETALOL HCL 20 MG/4 ML VIAL IV PRN (08:07)
[2024-09-23] MEDS ORDERED: IPRATROPIUM/ALBUTEROL 3 ML AMPUL.NEB NEB PRN (08:07)
[2024-09-23] MEDS ORDERED: METOPROLOL TARTRATE 5 MG/5 ML VIAL IV PRN (08:07)
[2024-09-23] MEDS ORDERED: ACETAMINOPHEN 325 MG TABLET PO PRN (08:07)
[2024-09-23] MEDS ORDERED: SENNOSIDES 1 TABLET PO PRN (08:07)
[2024-09-23] MEDS ORDERED: POTASSIUM CHLORIDE 20 MEQ TABLET PO PRN (08:07)
[2024-09-23] MEDS ORDERED: PROCHLORPERAZINE 10 MG TABLET PO PRN (08:07)
[2024-09-23] MEDS ORDERED: POLYETHYLENE GLYCOL 3350 17 GM PACKET PO PRN (08:07)
[2024-09-23] MEDS ORDERED: ONDANSETRON 4 MG/2 ML VIAL IV PRN (08:07)
[2024-09-23] MEDS ORDERED: POTASSIUM CHLORIDE 40 MEQ in DEXTROSE 5% IN WATER 500 ML IV PRN (08:07)
[2024-09-23] MEDS ORDERED: METOCLOPRAMIDE 10 MG/2 ML VIAL IV PRN (08:07)
[2024-09-23 08:49] LABS: Basophils # (Auto) 0.01 K/mcL (0.00-0.30); Basophils % (Auto) 0.1 % (0.0-2.0); Eosinophils # (Auto) 0.04 K/mcL (0.00-0.70); Eosinophils % (Auto) 0.2 % (0.0-7.0); Hematocrit 36.3 % (40.1-51.0); Hemoglobin 12.5 g/dL (13.7-17.5); Lymphocytes # (Auto) 1.31 K/mcL (1.50-4.80); Lymphocytes % (Auto) 6.9 % (15.5-49.0); Mean Cell Volume 96.3 fL (80.0-100.0); Mean Corpuscular HGB Conc 34.4 g/dL (31.0-36.0); Mean Platelet Volume 9.9 fL (8.8-12.5); Monocytes # (Auto) 1.56 K/mcL (0.10-0.90); Monocytes % (Auto) 8.2 % (1.0-12.0); Neutrophils % (Auto) 84.2 % (38.0-78.0); Platelet Count 219 K/mcL (140-440); RBC 3.77 M/mcL (4.63-6.08); Red Cell Distribution Width 13.3 % (11.5-14.5); WBC 19.1 K/mcL (4.5-11.0)
[2024-09-23 09:11] LABS: C-Reactive Protein 2.62 mg/dL (0.03-0.80)
[2024-09-23] MEDS: METOPROLOL SUCCINATE 50 MG TAB.XL.24H PO SCH (09:20)
[2024-09-23] MEDS: ASPIRIN 81 MG TAB.CHEW PO SCH (09:21)
[2024-09-23] MEDS: predniSONE 5 MG TABLET PO SCH (09:21)
[2024-09-23] MEDS: amLODIPine 5 MG TABLET PO SCH (09:21)
[2024-09-23] MEDS: ZINC SULFATE 50 MG CAPSULE PO SCH (09:21)
[2024-09-23] MEDS: ENOXAPARIN 40 MG/0.4 ML SYRINGE SQ SCH (09:21)
[2024-09-23] MEDS: DOCUSATE SODIUM 100 MG CAPSULE PO SCH (09:21)
[2024-09-23 09:24] LABS: Band Neutrophils % 9 % (0-10); Lymphocytes % 6 % (15-49); Monocytes % (Manual) 4 % (1-12); Platelet Estimate NORMAL (Normal); RBC Morphology NORMAL (Normal); Reactive Lymphocytes 5 % (0-2); Segmented Neutrophils % 76 % (38-78)
[2024-09-23] MEDS ORDERED: VANCOMYCIN PER PHARMACY IV SCH (10:05)
[2024-09-23] MEDS: PROBENECID 500 MG PO SCH (11:28)
[2024-09-23] MEDS: VANCOMYCIN IV SCH (11:30)
[2024-09-23] MEDS: WATER IV SCH (11:30)
[2024-09-23] MEDS: DEXTROSE 5% IV SCH (11:30)
[2024-09-23 11:48] LABS: Appearance,Urine Clear (Clear); Bilirubin,Urine Negative (Negative); Color,Urine Yellow; Glucose,Urine (UA) Negative (Negative); Ketones,Urine Negative (Negative); Leukocyte Esterase,Urine Negative /uL (Negative); Nitrate,Urine Negative (Negative); PH,Urine 6.5 (5.0-9.0); Protein,Urine 100 mg/dL (Negative); Specific Gravity,Urine 1.025 (1.000-1.035); Urine Blood Trace-intact ery/mcL (Negative); Urine RBC 0 /hpf (0-3); Urine Squamous Epithelial Cell 0 /hpf (0-4); Urine WBC 0 /hpf (0-4); Urobilinogen,Urine Normal
[2024-09-23] MEDS: cefTRIAXone 1 GM VIAL IV SCH (13:46)
[2024-09-23] MEDS: 0.9 % SODIUM CHLORIDE 10 ML SYRINGE IV SCH (13:47)
[2024-09-24 06:55] LABS: ALT/SGPT 14 U/L (<40); AST/SGOT 25 U/L (<40); Albumin 3.2 gm/dL (3.2-5.2); Albumin/Globulin Ratio 1.6 (1.0-2.3); Alkaline Phosphatase 69 U/L (39-117); Bilirubin,Direct 0.2 mg/dL (<0.3); Bilirubin,Total 0.4 mg/dL (0.1-1.0); Blood Urea Nitrogen 12 mg/dL (8-23); Calcium 8.6 mg/dL (8.6-10.4); Carbon Dioxide 25 mmol/L (22-30); Chloride 99 mmol/L (96-108); Glomerular Filtration Rate 88; Glucose 89 mg/dL (70-105); Lactate Dehydrogenase 180 U/L (135-225); Phosphorous 1.6 mg/dL (2.5-4.5); Potassium 2.7 mmol/L (3.3-5.1); Sodium 135 mmol/L (133-145); Triglycerides 75 mg/dL (<150); Uric Acid 3.8 mg/dL (2.5-8.0)
[2024-09-24 07:06] LABS: Hemoglobin 12.8 g/dL (13.7-17.5); Mean Corpuscular HGB Conc 35.6 g/dL (31.0-36.0); Mean Platelet Volume 10.7 fL (8.8-12.5); Platelet Count 219 K/mcL (140-440); RBC 3.79 M/mcL (4.63-6.08); Red Cell Distribution Width 13.4 % (11.5-14.5); WBC 14.6 K/mcL (4.5-11.0)
[2024-09-24 07:44] LABS: Eosinophils % (Manual) 2 % (0-7); Lymphocytes % 14 % (15-49); Monocytes % (Manual) 5 % (1-12); Platelet Estimate NORMAL (Normal); RBC Morphology NORMAL (Normal); Reactive Lymphocytes 2 % (0-2); Segmented Neutrophils % 77 % (38-78)
[2024-09-24] MEDS: PHOSPHORUS 250 MG TABLET PO SCH (08:18)
[2024-09-24] MEDS: NEUTRA PHOS 1 PACKET PO SCH (08:18)
[2024-09-24] MEDS: MAGNESIUM SULFATE 2 GM/50 ML BAG IV PRN (09:15)
[2024-09-24] MEDS: POTASSIUM CHLORIDE 10 MEQ/100 ML BAG IV SCH (10:07)
[2024-09-25 06:02] LABS: Basophils # (Auto) 0.03 K/mcL (0.00-0.30); Basophils % (Auto) 0.3 % (0.0-2.0); Eosinophils # (Auto) 0.25 K/mcL (0.00-0.70); Eosinophils % (Auto) 2.4 % (0.0-7.0); Hematocrit 36.2 % (40.1-51.0); Hemoglobin 12.5 g/dL (13.7-17.5); Lymphocytes # (Auto) 1.39 K/mcL (1.50-4.80); Lymphocytes % (Auto) 13.4 % (15.5-49.0); Mean Cell Volume 97.1 fL (80.0-100.0); Mean Corpuscular HGB Conc 34.5 g/dL (31.0-36.0); Mean Platelet Volume 10.5 fL (8.8-12.5); Monocytes # (Auto) 0.91 K/mcL (0.10-0.90); Monocytes % (Auto) 8.8 % (1.0-12.0); Platelet Count 213 K/mcL (140-440); RBC 3.73 M/mcL (4.63-6.08); Red Cell Distribution Width 13.3 % (11.5-14.5); WBC 10.4 K/mcL (4.5-11.0)
[2024-09-25 06:42] LABS: C-Reactive Protein 3.71 mg/dL (0.03-0.80)
[2024-09-25 06:58] LABS: ALT/SGPT 15 U/L (<40); AST/SGOT 25 U/L (<40); Albumin 3.2 gm/dL (3.2-5.2); Albumin/Globulin Ratio 1.6 (1.0-2.3); Alkaline Phosphatase 70 U/L (39-117); Bilirubin,Direct 0.2 mg/dL (<0.3); Bilirubin,Total 0.4 mg/dL (0.1-1.0); Blood Urea Nitrogen 11 mg/dL (8-23); Calcium 8.8 mg/dL (8.6-10.4); Carbon Dioxide 24 mmol/L (22-30); Chloride 98 mmol/L (96-108); Glomerular Filtration Rate 88; Glucose 89 mg/dL (70-105); Lactate Dehydrogenase 187 U/L (135-225); Phosphorous 2.7 mg/dL (2.5-4.5); Potassium 2.9 mmol/L (3.3-5.1); Sodium 135 mmol/L (133-145); Triglycerides 67 mg/dL (<150); Uric Acid 4.1 mg/dL (2.5-8.0)
[2024-09-25] MEDS: POTASSIUM CHLORIDE 20 MEQ TABLET PO PRN (09:06)
[2024-09-25] MEDS: POTASSIUM CHLORIDE 10 MEQ/100 ML BAG IV SCH (09:45)
== END 2024-09-25 13:57 | disposition home or self-care (01) | DRG 864 ==
LOC: ED 20:43 → MEDSUR 09-23 00:26
PROVIDERS: ADMIT Internal Medicine; ATTEND Internal Medicine